=== PATIENT | male | born 1980 | race Two or more races ===

== ENCOUNTER 2018-08-18 08:38 | Emergency (ER) | payer OTHER ==
[~2018-08-18] VITALS: Ht 175.3 cm; Wt 79.4 kg
[2018-08-18] MEDS ORDERED: ALTACE10 MG (08:57)
[2018-08-18] MEDS ORDERED: NORVASC10 MG (08:57)
[2018-08-19] MEDS ORDERED: IBUPROFEN600 MG (18:45)
[2018-08-19] MEDS ORDERED: SULFAMETHOXAZO500 GM (18:48)
== END 2018-08-18 11:11 | disposition home or self-care (01) ==
LOC: ER 08:38
DX: L02.214 Cutaneous abscess of groin (principal)

== ENCOUNTER 2018-08-19 18:29 | Inpatient (IN) | payer OTHER ==
[~2018-08-19] VITALS: Ht 43.2 cm; Wt 79.4 kg
[~2018-08-19 18:29] MED LIST: ALTACE10 MG; NORVASC10 MG
[2018-08-19] MEDS ORDERED: IBUPROFEN600 MG (18:45)
[2018-08-19] MEDS ORDERED: SULFAMETHOXAZO500 GM (18:48)
[2018-08-28] MEDS ORDERED: CEPHALEXIN500 MG PO (12:43)
== END 2018-08-28 13:58 | disposition home or self-care (01) | DRG 581 ==
LOC: ER 18:29 → SEC-K 08-20 09:44 → SURH 08-20 09:44
PROVIDERS: Specialist; ADMIT Internal Medicine
PROC: 0J9C0ZZ Drainage of Pelvic Region Subcutaneous Tissue and Fascia, Open Approach (ICD-10-PCS; principal; 2018-08-20 16:00)
PROC: BW4GZZZ Ultrasonography of Pelvic Region (ICD-10-PCS; 2018-08-25)
DX: L02.211 Cutaneous abscess of abdominal wall (principal); B95.61 Methicillin susceptible Staphylococcus aureus infection as the cause of diseases classified elsewhere

== ENCOUNTER 2019-04-01 14:21 | Outpatient (CLI) | payer OTHER ==
[~2019-04-01 14:21] MED LIST changes: +CEPHALEXIN500 MG PO; +IBUPROFEN600 MG; +SULFAMETHOXAZO500 GM
== END 2019-04-01 14:23 | disposition home or self-care (01) ==
LOC: RAD 14:21
DX: Z00.8 Encounter for other general examination (principal)